=== PATIENT | female | born 1970 | race African-American/Black ===

== ENCOUNTER 2017-04-30 10:14 | Emergency (ER) | payer OTHER ==
[2017-04-30 10:40] VITALS: BP 162/103; PULSE 72; TEMP 98; BMI 48.4
--- NOTE | 2017-04-30 11:33 | PDOC ---
History of Present Illness - General Chief Complaint: Blood Pressure Problem Stated Complaint: EVALUATION Time Seen by Provider: 04/30/17 11:21 History Source: Patient Exam Limitations: No Limitations - History of Present Illness Initial Comments: 04/30/17 12:49 Patient is a [47 y/o female here requesting renewal of her hypertensive and diabetic medication. Patient reports that she's been without insurance for 2 months recently seems her card but was unable to find the physician. She denies any chest pain or shortness of breath, has noticed that her blood pressure has been elevated without any symptoms. Past Medical History: Hypertension, [id number] diabetes Allergies: No known allergies Medications: [See medication list] Family History: Non-contributory Social History: Denies smoking, alcohol use, or IVDU Review of Systems GENERAL/CONSTITUTIONAL: [No fever or chills. No weakness. No weight change.] HEAD, EYES, EARS, NOSE AND THROAT: [No change in vision. No ear pain or discharge. No sore throat. ] CARDIOVASCULAR: [No chest pain or shortness of breath.] RESPIRATORY: [No cough, wheezing, or hemoptysis.] GASTROINTESTINAL: [No nausea, vomiting, diarrhea or constipation. No rectal bleeding.] GENITOURINARY: [No dysuria, frequency, or change in urination.] MUSCULOSKELETAL: [No joint or muscle swelling or pain. No neck or back pain.] SKIN AND BREASTS: [No rash or easy bruising.] NEUROLOGIC: [No headache, vertigo, loss of consciousness, or loss of sensation.] PSYCHIATRIC: [No depression or anxiety.] ENDOCRINE: [No increased thirst. No abnormal weight change.] HEMATOLOGIC/LYMPHATIC: [No anemia, easy bleeding, or history of blood clots.] ALLERGIC/IMMUNOLOGIC: [No hives or skin allergy. No latex allergy.] Physical Exam: GENERAL: [The patient is awake, alert, and fully oriented, in no acute distress. ] HEAD: [Normal with no signs of trauma.] EYES: [Pupils equal, round and reactive to light, extraocular movements intact, sclera anicteric, conjunctiva clear.] ENT: [Ears normal, nares patent, oropharynx clear without exudates. Moist mucous membranes. No uvula deviation] NECK: [Normal range of motion, supple without lymphadenopathy, JVD, or masses.] LUNGS: [Breath sounds equal, clear to auscultation bilaterally. No wheezes, and no crackles.] HEART: [Regular rate and rhythm, normal S1 and S2 without murmur, rub or gallop. ] ABDOMEN: [Soft, nontender, normoactive bowel sounds. No guarding, no rebound. No masses. No bruising or abrasions] RECTAL : [Guaiac negative, normal rectal tone.] MUSCULOSKELETAL: [Normal range of motion, no edema. No clubbing or cyanosis. No cords, erythema, or tenderness. No CVA Tenderness with fist.] NEUROLOGICAL: [Cranial nerves II through XII grossly intact. Normal speech, normal gait.] PSYCH: [Normal mood, normal affect.] SKIN: [Warm, Dry, normal turgor, no rashes or lesions noted.] Past History - Past Medical History Allergies/Adverse Reactions: Allergies Allergy/AdvReac Type Severity Reaction Status Date / Time No Known Allergies Allergy Verified 04/30/17 10:37 Home Medications: Ambulatory Orders Amlodipine Besylate 10 mg PO DAILY 04/30/17 Losartan Potassium 50 mg PO DAILY 04/30/17 Metformin HCl 500 mg PO BID 04/30/17 COPD: No Diabetes: Yes HTN: Yes (not on meds) - Surgical History Abdominal Surgery: Yes (gastric sleve) - Immunization History Immunization Up to Date: Yes - Suicide/Smoking/Psychosocial Hx Smoking History: Never smoked *Physical Exam - Vital Signs Last Vital Signs Temp Pulse Resp BP Pulse Ox 98.0 F 72 18 162/103 100 04/30/17 10:25 04/30/17 10:25 04/30/17 10:25 04/30/17 10:25 04/30/17 10:25 Medical Decision Making - Medical Decision Making 04/30/17 12:53 A/P:: Patient here for medication renewal for hypertension but has been asymptomatic I have called her primary care doctor have located the address and have instructed patient to register and will be seen by a physician today as per the doctor's office. Discharged with strict instructions to follow up today. If any chest pain, SOB or other concerns return to the ER *DC/Admit/Observation/Transfer Diagnosis at time of Disposition: Prescription refill - Discharge Dispostion Disposition: HOME Condition at time of disposition: Stable Admit: No - Referrals Referrals: ON STAFF,NOT [Primary Care Provider] - - Patient Instructions Additional Instructions: Please follow up immediately upon discharge today at [address] [place], second floor to clinic register and you will see a physician. If any chest pain, shortness of breath, other concerns return to ER - Post Discharge Activity Forms/Work/School Notes: Back to Work
== END 2017-04-30 11:51 | disposition home or self-care (01) ==
LOC: JERFT 10:14
DX: Z76.0 Encounter for issue of repeat prescription (principal); I10 Essential (primary) hypertension; E11.9 Type 2 diabetes mellitus without complications; Z79.84 Long term (current) use of oral hypoglycemic drugs
CPT/HCPCS: 99281-25

== ENCOUNTER 2022-05-29 09:10 | Emergency (ER) | payer OTHER ==
[2022-05-29 09:24] VITALS: RESP 18; TEMP 97.9; BMI 49.4
[2022-05-29] MEDS ORDERED: SODIUM CHLORIDE 0.9% 500 ML INFUS.BAG IV ONE (10:14)
[2022-05-29 10:22] LABS: BASO % 0.7 % (0-2.0); EOS % 0.1 % (0-4.5); HEMATOCRIT 36.6 % (32.4-45.2); HEMOGLOBIN 12.1 GM/dL (10.7-15.3); LYMPH % 22.1 % (8-40); MCH 27.7 pg (25.7-33.7); MCHC 33.2 g/dl (32.0-36.0); MEAN CELL VOLUME 83.6 fl (80-96); MEAN PLT VOLUME 8.3 fl (7.5-11.1); MONO % 7.6 % (3.8-10.2); NEUT % 69.5 % (42.8-82.8); PLATELET COUNT 381 10^3/uL (134-434); RBC 4.38 M/mm3 (3.60-5.2); RDW 14.9 % (11.6-15.6)
[2022-05-29] MEDS ORDERED: METOCLOPRAMIDE HCL INJECTION 10 MG/2 ML VIAL IVPB ONE (10:25)
[2022-05-29] MEDS ORDERED: MECLIZINE HCL 25 MG TABLET (FP) PO ONE (10:25)
[2022-05-29] MEDS ORDERED: MECLIZINE HCL 25 MG TABLET (FP) ONE (10:33)
[2022-05-29] MEDS ORDERED: METOCLOPRAMIDE HCL INJECTION 10 MG/2 ML VIAL ONE (10:33)
[2022-05-29 10:47] LABS: ALBUMIN 3.6 g/dl (3.4-5.0); BLOOD UREA NITROGEN 16.3 mg/dL (7-18); CALCIUM 9.8 mg/dL (8.5-10.1); MAGNESIUM 1.8 mg/dL (1.8-2.4)
[2022-05-29 10:49] LABS: BILIRUBIN,TOTAL 0.6 mg/dL (0.2-1); CREATININE 1.2 mg/dL (0.55-1.3); PHOSPHOROUS 3.6 mg/dL (2.5-4.9); TOT PROT 7.5 g/dl (6.4-8.2)
[2022-05-29] MEDS ORDERED: POTASSIUM CHLORIDE ORAL LIQUID 20 MEQ/15 ML PO ONE (11:07)
[2022-05-29] MEDS ORDERED: POTASSIUM CHLORIDE ORAL LIQUID 20 MEQ/15 ML ONE (11:11)
[2022-05-29 13:43] VITALS: BP 138/95; PULSE 89
== END 2022-05-29 13:44 | disposition home or self-care (01) ==
LOC: JER 09:10
PROC: 3E033GC Introduction of Other Therapeutic Substance into Peripheral Vein, Percutaneous Approach (ICD-10-PCS; principal; 2022-05-29)
DX: I95.0 Idiopathic hypotension (principal); E86.0 Dehydration
CPT/HCPCS: 36415; 70450-TC; 80053; 83690; 83735; 84100; 84484; 85025; 93005; 93010; 99285-25

== ENCOUNTER 2022-07-08 10:34 | Inpatient (IN) | payer OTHER ==
[2022-07-08 10:41] VITALS: BMI 42.8
[2022-07-08] MEDS ORDERED: SODIUM CHLORIDE 3,293 ML IV ONE (11:15)
[2022-07-08] MEDS ORDERED: VANCOMYCIN 1 GM in D5W (PRE-DOCKED) 1,000 MG/250 ML (RESTRICTED TO ID ONLY IVPB ONE (11:16)
[2022-07-08] MEDS ORDERED: PIPERACILLIN/TAZOB 4.5 GM 4.5 GM in DEXTROSE 5%-WATER 100 ML IVPB ONE (11:17)
[2022-07-08 11:28] LABS: VENOUS BASE EXCESS -4.7 mmol/L (-2-2); VENOUS PCO2 33.3 mmHg (38-52); VENOUS PH 7.386 (7.310-7.410)
[2022-07-08 11:34] LABS: BASO % 0.7 % (0-2.0); EOS % 0.1 % (0-4.5); HEMATOCRIT 29.6 % (32.4-45.2); HEMOGLOBIN 10.4 GM/dL (10.7-15.3); LYMPH % 13.3 % (8-40); MCH 28.9 pg (25.7-33.7); MEAN CELL VOLUME 82.7 fl (80-96); MEAN PLT VOLUME 9.6 fl (7.5-11.1); MONO % 12.3 % (3.8-10.2); NEUT % 73.6 % (42.8-82.8); PLATELET COUNT 367 10^3/uL (134-434); RBC 3.58 M/mm3 (3.60-5.2); RDW 15.5 % (11.6-15.6); WHITE BLOOD COUNT 8.1 K/mm3 (4.0-10.0)
[2022-07-08 11:42] LABS: INR 1.14 (0.83-1.09); PROTHROMBIN TIME (PATIENT) 13.2 SEC (9.7-13.0)
[2022-07-08 11:44] LABS: ACTIVATED PTT 30.2 SECONDS (25.2-36.5)
[2022-07-08 11:55] LABS: CHLORIDE 89 mmol/L (98-107); POTASSIUM 3.4 mmol/L (3.5-5.1); SODIUM 128 mmol/L (136-145)
[2022-07-08 11:56] LABS: MAGNESIUM 2.6 mg/dL (1.8-2.4)
[2022-07-08 11:57] LABS: ALBUMIN 3.5 g/dl (3.4-5.0); CALCIUM 8.5 mg/dL (8.5-10.1)
[2022-07-08 11:58] LABS: ANION GAP 19 MMOL/L (8-16); CO2 20 mmol/L (21-32); GLUCOSE,RANDOM 104 mg/dL (74-106)
[2022-07-08 12:00] LABS: PHOSPHOROUS 5.2 mg/dL (2.5-4.9)
[2022-07-08 12:01] LABS: CREATININE 5.6 mg/dL (0.55-1.3); SGOT/AST 47 U/L (15-37); SGPT/ALT 25 U/L (13-61)
[2022-07-08 12:02] LABS: BILIRUBIN,TOTAL 0.8 mg/dL (0.2-1); TOT PROT 7.1 g/dl (6.4-8.2)
[2022-07-08 12:04] LABS: ALK PHOS 49 U/L (45-117)
[2022-07-08] MEDS ORDERED: PIPERACILLIN/TAZOB 4.5 GM 4.5 GM/100 ML BAG IVPB ONE (12:05)
[2022-07-08] MEDS ORDERED: VANCOMYCIN/WATER FOR INJ (PEG) 1,000 MG/200 ML BAG IVPB ONE (12:05)
[2022-07-08 12:16] LABS: LACTIC ACID 6.8 mmol/L (0.4-2.0)
[2022-07-08 15:14] LABS: PH,URINE 5.5 (5.0-8.0); URINE APPEARANCE CLEAR; URINE BILIRUBIN NEGATIVE (NEGATIVE); URINE COLOR YELLOW; URINE GLUCOSE (UA) NEGATIVE (NEGATIVE); URINE KETONE NEGATIVE (NEGATIVE); URINE LEUK ESTERASE NEGATIVE (NEGATIVE); URINE NITRITE NEGATIVE (NEGATIVE); URINE PROTEIN 1+ (NEGATIVE); URINE UROBILINOGEN 0.2 mg/dL (0.2-1.0)
[2022-07-08] MEDS ORDERED: SODIUM CHLORIDE 0.9% 500 ML INFUS.BAG IV ONE (15:23)
[2022-07-08] MEDS ORDERED: ACETAMINOPHEN 325 MG TABLET (FP) PO PRN (15:32)
[2022-07-08 15:39] LABS: URINE RBC 22.2 /uL (0-23.9)
[2022-07-08 15:40] LABS: EPI CELLS 45.2 /uL (0-25.1); URINE BACTERIA 72.5 /uL (0-1359); URINE WBC 86.6 /uL (0-25.8)
[2022-07-08] MEDS ORDERED: CEFTRIAXONE 1 GM in DEXTROSE 5%-WATER - 50 ML IVPB ONE ×2 (15:46→15:55)
[2022-07-08] MEDS: INSULIN SLIDING SCALE (NOVOLOG) 1 VIAL SQ SCH ×2 (16:43→22:08)
[2022-07-08 16:45] LABS: POTASSIUM 3.2 mmol/L (3.5-5.1)
[2022-07-08 16:46] LABS: BLOOD UREA NITROGEN 65.2 mg/dL (7-18)
[2022-07-08 16:50] LABS: CREATININE 4.4 mg/dL (0.55-1.3)
[2022-07-08 16:59] LABS: CALCIUM 7.1 mg/dL (8.5-10.1)
[2022-07-08] MEDS ORDERED: SODIUM CHLORIDE 1,000 ML IV SCH (17:00)
[2022-07-08] MEDS ORDERED: SODIUM CHLORIDE 0.45% 1,000 ML IV SCH (17:00)
[2022-07-08] MEDS: KCL 10 MEQ IVPB 10 MEQ/100 ML INFUS.BAG IVPB SCH ×4 (17:32→23:55)
[2022-07-08 21:15] LABS: POTASSIUM 3.1 mmol/L (3.5-5.1)
[2022-07-08 21:16] LABS: CALCIUM 7.4 mg/dL (8.5-10.1)
[2022-07-08 21:17] LABS: BLOOD UREA NITROGEN 58.2 mg/dL (7-18)
[2022-07-08] MEDS ORDERED: POTASSIUM CHLORIDE ORAL LIQUID 20 MEQ/15 ML PO ONE (21:18)
[2022-07-08 21:20] LABS: CREATININE 3.8 mg/dL (0.55-1.3)
[2022-07-08] MEDS ORDERED: LACTATED RINGERS SOLUTION 1000 ML INFUS.BAG IV ONE (21:28)
[2022-07-08] MEDS ORDERED: CHLORHEXIDINE GLUCONATE 4% CLEANSER FOR DECOLONIZATION TP SCH (22:00)
[2022-07-08] MEDS: HEPARIN NA (PORCINE) 5,000 UNITS/ML 1ML VIAL SQ SCH (22:10)
[2022-07-08] MEDS: MUPIROCIN 2% TOPICAL OINTMENT FOR DECOLONIZATION NS SCH (22:10)
[2022-07-09] MEDS: INSULIN SLIDING SCALE (NOVOLOG) 1 VIAL SQ SCH ×4 (06:30→22:09)
[2022-07-09] MEDS: HEPARIN NA (PORCINE) 5,000 UNITS/ML 1ML VIAL SQ SCH ×3 (06:30→22:10)
[2022-07-09 07:51] LABS: POTASSIUM 3.7 mmol/L (3.5-5.1)
[2022-07-09 07:53] LABS: CALCIUM 7.6 mg/dL (8.5-10.1)
[2022-07-09 07:54] LABS: ALBUMIN 2.9 g/dl (3.4-5.0); MAGNESIUM 2.3 mg/dL (1.8-2.4)
[2022-07-09 07:56] LABS: CREATININE 2.8 mg/dL (0.55-1.3)
[2022-07-09 07:57] LABS: PHOSPHOROUS 2.5 mg/dL (2.5-4.9)
[2022-07-09 07:58] LABS: TOT PROT 6.1 g/dl (6.4-8.2)
[2022-07-09 08:02] LABS: BILIRUBIN,TOTAL 0.6 mg/dL (0.2-1)
[2022-07-09] MEDS ORDERED: LACTATED RINGERS SOLUTION 1,000 ML/1,000 ML INFUS.BAG IV STA (09:54)
[2022-07-09] MEDS ORDERED: PANTOPRAZOLE 40 MG TABLET PO SCH (10:00)
[2022-07-09] MEDS: MUPIROCIN 2% TOPICAL OINTMENT FOR DECOLONIZATION NS SCH (10:23)
[2022-07-09] MEDS ORDERED: SODIUM CHLORIDE 1,000 ML IV SCH (10:30)
[2022-07-09] MEDS ORDERED: CEFTRIAXONE 1 GM in DEXTROSE 5%-WATER - 50 ML IVPB SCH ×2 (12:00→12:03)
[2022-07-09] MEDS ORDERED: MUPIROCIN 2% TOPICAL OINTMENT FOR DECOLONIZATION NS SCH (22:00)
[2022-07-09] MEDS ORDERED: CHLORHEXIDINE GLUCONATE 4% CLEANSER FOR DECOLONIZATION TP SCH (22:00)
[2022-07-10] MEDS: HEPARIN NA (PORCINE) 5,000 UNITS/ML 1ML VIAL SQ SCH ×3 (06:10→22:03)
[2022-07-10] MEDS: SODIUM CHLORIDE 1,000 ML IV SCH ×2 (06:14→19:27)
[2022-07-10] MEDS: INSULIN SLIDING SCALE (NOVOLOG) 1 VIAL SQ SCH ×2 (06:48→11:14)
[2022-07-10] MEDS: ACETAMINOPHEN 325 MG TABLET (FP) PO PRN (07:53)
[2022-07-10] MEDS: PANTOPRAZOLE 40 MG TABLET PO SCH (10:28)
[2022-07-10 11:19] LABS: CHLORIDE 107 mmol/L (98-107); POTASSIUM 3.8 mmol/L (3.5-5.1); SODIUM 139 mmol/L (136-145)
[2022-07-10 11:21] LABS: ALBUMIN 2.9 g/dl (3.4-5.0); ANION GAP 11 MMOL/L (8-16); BLOOD UREA NITROGEN 31.5 mg/dL (7-18); CO2 20 mmol/L (21-32); GLUCOSE,RANDOM 86 mg/dL (74-106)
[2022-07-10 11:24] LABS: CREATININE 1.6 mg/dL (0.55-1.3); SGOT/AST 54 U/L (15-37)
[2022-07-10 11:25] LABS: SGPT/ALT 31 U/L (13-61)
[2022-07-10 11:26] LABS: BILIRUBIN,TOTAL 0.6 mg/dL (0.2-1); TOT PROT 6.4 g/dl (6.4-8.2)
[2022-07-10 11:27] LABS: ALK PHOS 45 U/L (45-117)
[2022-07-10 11:39] LABS: CALCIUM 8.9 mg/dL (8.5-10.1)
[2022-07-10] MEDS: FOLIC ACID 1 MG TABLET (FP) PO SCH (14:56)
[2022-07-10 15:20] LABS: IRON SERUM 114 ug/dL (50-175)
[2022-07-10 15:21] LABS: TOTAL IRON BINDING CAPACITY 197 ug/dL (250-450)
[2022-07-10 21:06] LABS: ANTIGLOMERULAR BASEMENT MEN.AB <0.2 units (0.0-0.9)
[2022-07-11] MEDS: HEPARIN NA (PORCINE) 5,000 UNITS/ML 1ML VIAL SQ SCH ×3 (05:09→21:16)
[2022-07-11] MEDS: ACETAMINOPHEN 325 MG TABLET (FP) PO PRN ×2 (06:33→21:14)
[2022-07-11] MEDS ORDERED: amLODIPine BESYLATE 10 MG TABLET (FP) PO SCH (10:00)
[2022-07-11 10:34] LABS: HEMATOCRIT 28.1 % (32.4-45.2); HEMOGLOBIN 9.6 GM/dL (10.7-15.3); MCH 28.2 pg (25.7-33.7); MCHC 34.2 g/dl (32.0-36.0); MEAN CELL VOLUME 82.6 fl (80-96); MEAN PLT VOLUME 8.5 fl (7.5-11.1); PLATELET COUNT 378 10^3/uL (134-434); RDW 16.3 % (11.6-15.6); RETICULOCYTES 0.37 % (0.5-1.5); WHITE BLOOD COUNT 6.2 K/mm3 (4.0-10.0)
[2022-07-11] MEDS: FOLIC ACID 1 MG TABLET (FP) PO SCH (10:54)
[2022-07-11] MEDS: PANTOPRAZOLE 40 MG TABLET PO SCH (10:54)
[2022-07-11 10:59] LABS: POTASSIUM 3.6 mmol/L (3.5-5.1)
[2022-07-11] MEDS: NYSTATIN POWDER 100,000 UNITS/GM - 15 GM TOPICAL POWDER TP SCH (11:00)
[2022-07-11 11:10] LABS: ALBUMIN 2.8 g/dl (3.4-5.0); BLOOD UREA NITROGEN 24.2 mg/dL (7-18); CALCIUM 9.7 mg/dL (8.5-10.1); MAGNESIUM 1.9 mg/dL (1.8-2.4)
[2022-07-11 11:12] LABS: CREATININE 1.4 mg/dL (0.55-1.3); PHOSPHOROUS 3.4 mg/dL (2.5-4.9)
[2022-07-11 11:13] LABS: BILIRUBIN,TOTAL 0.5 mg/dL (0.2-1); TOT PROT 6.2 g/dl (6.4-8.2)
[2022-07-11 16:08] LABS: ATYPICAL pANCA <1:20 titer (Neg:<1:20); C-ANCA <1:20 titer (Neg:<1:20)
[2022-07-12] MEDS ORDERED: ACETAMINOPHEN 1000 MG/100 ML BAG IVPB ONE (04:16)
[2022-07-12] MEDS: HEPARIN NA (PORCINE) 5,000 UNITS/ML 1ML VIAL SQ SCH ×3 (05:06→21:40)
[2022-07-12 09:24] LABS: HEMATOCRIT 26.6 % (32.4-45.2); HEMOGLOBIN 9.2 GM/dL (10.7-15.3); MCH 28.8 pg (25.7-33.7); MCHC 34.5 g/dl (32.0-36.0); MEAN CELL VOLUME 83.6 fl (80-96); MEAN PLT VOLUME 8.2 fl (7.5-11.1); PLATELET COUNT 344 10^3/uL (134-434); RBC 3.18 M/mm3 (3.60-5.2); RDW 16.4 % (11.6-15.6); WHITE BLOOD COUNT 6.3 K/mm3 (4.0-10.0)
[2022-07-12 09:44] LABS: POTASSIUM 3.7 mmol/L (3.5-5.1)
[2022-07-12 09:51] LABS: ALBUMIN 2.9 g/dl (3.4-5.0)
[2022-07-12 09:55] LABS: BLOOD UREA NITROGEN 22.2 mg/dL (7-18); CREATININE 1.5 mg/dL (0.55-1.3)
[2022-07-12 09:57] LABS: PHOSPHOROUS 4.4 mg/dL (2.5-4.9)
[2022-07-12 09:58] LABS: CALCIUM 9.4 mg/dL (8.5-10.1); MAGNESIUM 1.6 mg/dL (1.8-2.4)
[2022-07-12 09:59] LABS: TOT PROT 6.2 g/dl (6.4-8.2)
[2022-07-12 10:00] LABS: BILIRUBIN,TOTAL 0.5 mg/dL (0.2-1)
[2022-07-12] MEDS: FOLIC ACID 1 MG TABLET (FP) PO SCH (11:15)
[2022-07-12] MEDS: NYSTATIN POWDER 100,000 UNITS/GM - 15 GM TOPICAL POWDER TP SCH (11:15)
[2022-07-12] MEDS: PANTOPRAZOLE 40 MG TABLET PO SCH (11:15)
[2022-07-12] MEDS ORDERED: MAGNESIUM OXIDE 400 MG TABLET (FP) PO ONE (14:10)
[2022-07-12] MEDS: ACETAMINOPHEN 325 MG TABLET (FP) PO PRN (14:52)
[2022-07-12] MEDS: oxyCODONE HCL 5 MG TABLET PO PRN (23:11)
[2022-07-13] MEDS: HEPARIN NA (PORCINE) 5,000 UNITS/ML 1ML VIAL SQ SCH ×3 (06:56→21:43)
[2022-07-13] MEDS: oxyCODONE HCL 5 MG TABLET PO PRN ×3 (07:13→22:57)
[2022-07-13] MEDS: NYSTATIN POWDER 100,000 UNITS/GM - 15 GM TOPICAL POWDER TP SCH (09:49)
[2022-07-13] MEDS: PANTOPRAZOLE 40 MG TABLET PO SCH (09:49)
[2022-07-13] MEDS: FOLIC ACID 1 MG TABLET (FP) PO SCH (09:49)
[2022-07-13] MEDS ORDERED: ALPRAZolam 0.25 MG TABLET PO ONE (18:15)
[2022-07-14] MEDS: HEPARIN NA (PORCINE) 5,000 UNITS/ML 1ML VIAL SQ SCH ×3 (05:31→22:56)
[2022-07-14] MEDS: oxyCODONE HCL 5 MG TABLET PO PRN ×2 (07:54→22:56)
[2022-07-14] MEDS ORDERED: GABAPENTIN 300 MG CAPSULE PO PRN (07:59)
[2022-07-14 08:59] LABS: HEMATOCRIT 25.9 % (32.4-45.2); HEMOGLOBIN 9.1 GM/dL (10.7-15.3); MCHC 34.9 g/dl (32.0-36.0); PLATELET COUNT 342 10^3/uL (134-434); RBC 3.13 M/mm3 (3.60-5.2); RDW 15.7 % (11.6-15.6); WHITE BLOOD COUNT 6.5 K/mm3 (4.0-10.0)
[2022-07-14 09:21] LABS: POTASSIUM 3.6 mmol/L (3.5-5.1)
[2022-07-14 09:23] LABS: CALCIUM 10.3 mg/dL (8.5-10.1)
[2022-07-14 09:24] LABS: BLOOD UREA NITROGEN 19.6 mg/dL (7-18); MAGNESIUM 1.6 mg/dL (1.8-2.4)
[2022-07-14 09:27] LABS: CREATININE 1.5 mg/dL (0.55-1.3); PHOSPHOROUS 4.1 mg/dL (2.5-4.9)
[2022-07-14 09:28] LABS: TOT PROT 6.5 g/dl (6.4-8.2)
[2022-07-14 09:29] LABS: BILIRUBIN,TOTAL 0.4 mg/dL (0.2-1)
[2022-07-14] MEDS: FOLIC ACID 1 MG TABLET (FP) PO SCH (09:55)
[2022-07-14] MEDS: PANTOPRAZOLE 40 MG TABLET PO SCH (09:55)
[2022-07-14] MEDS: NYSTATIN POWDER 100,000 UNITS/GM - 15 GM TOPICAL POWDER TP SCH (09:56)
[2022-07-14] MEDS ORDERED: MAGNESIUM 2GM/50ML STERILE WATER IVPB IVPB ONE (11:25)
[2022-07-14] MEDS: GABAPENTIN 300 MG CAPSULE PO SCH ×2 (14:04→22:57)
[2022-07-15] MEDS: HEPARIN NA (PORCINE) 5,000 UNITS/ML 1ML VIAL SQ SCH ×3 (06:59→22:59)
[2022-07-15] MEDS: GABAPENTIN 300 MG CAPSULE PO SCH ×3 (06:59→22:59)
[2022-07-15 09:12] LABS: HEMATOCRIT 26.5 % (32.4-45.2); HEMOGLOBIN 9.2 GM/dL (10.7-15.3); MCH 28.7 pg (25.7-33.7); MCHC 34.9 g/dl (32.0-36.0); MEAN CELL VOLUME 82.3 fl (80-96); MEAN PLT VOLUME 7.9 fl (7.5-11.1); PLATELET COUNT 339 10^3/uL (134-434); RBC 3.22 M/mm3 (3.60-5.2); RDW 16.2 % (11.6-15.6); WHITE BLOOD COUNT 6.3 K/mm3 (4.0-10.0)
[2022-07-15 09:26] LABS: POTASSIUM 3.7 mmol/L (3.5-5.1)
[2022-07-15 09:31] LABS: CALCIUM 10.1 mg/dL (8.5-10.1)
[2022-07-15 09:32] LABS: ALBUMIN 2.9 g/dl (3.4-5.0); BLOOD UREA NITROGEN 23.8 mg/dL (7-18); MAGNESIUM 1.9 mg/dL (1.8-2.4)
[2022-07-15 09:35] LABS: CREATININE 1.9 mg/dL (0.55-1.3); PHOSPHOROUS 4.5 mg/dL (2.5-4.9)
[2022-07-15 09:36] LABS: BILIRUBIN,TOTAL 0.4 mg/dL (0.2-1); TOT PROT 6.4 g/dl (6.4-8.2)
[2022-07-15] MEDS: ASCORBIC ACID 250 MG TABLET (FP) PO SCH (09:47)
[2022-07-15] MEDS: PANTOPRAZOLE 40 MG TABLET PO SCH (09:48)
[2022-07-15] MEDS: FOLIC ACID 1 MG TABLET (FP) PO SCH (09:48)
[2022-07-15] MEDS: MULTIVITAMINS (DAILY MVI) TABLET (FP) PO SCH (09:48)
[2022-07-15] MEDS: NYSTATIN POWDER 100,000 UNITS/GM - 15 GM TOPICAL POWDER TP SCH (09:50)
[2022-07-15] MEDS ORDERED: SODIUM CHLORIDE 1,000 ML IV SCH (11:30)
[2022-07-15] MEDS: oxyCODONE HCL 5 MG TABLET PO PRN (22:59)
[2022-07-16] MEDS: HEPARIN NA (PORCINE) 5,000 UNITS/ML 1ML VIAL SQ SCH (06:20)
[2022-07-16] MEDS: GABAPENTIN 300 MG CAPSULE PO SCH ×3 (06:20→21:25)
[2022-07-16 10:10] LABS: HEMATOCRIT 26.3 % (32.4-45.2); LYMPH % 36.7 % (8-40); MCH 28.6 pg (25.7-33.7); MCHC 34.3 g/dl (32.0-36.0); MEAN CELL VOLUME 83.2 fl (80-96); MEAN PLT VOLUME 7.8 fl (7.5-11.1); MONO % 8.2 % (3.8-10.2); NEUT % 52.1 % (42.8-82.8); PLATELET COUNT 372 10^3/uL (134-434); RBC 3.16 M/mm3 (3.60-5.2); RDW 16.3 % (11.6-15.6); WHITE BLOOD COUNT 8.6 K/mm3 (4.0-10.0)
[2022-07-16 10:35] LABS: POTASSIUM 3.6 mmol/L (3.5-5.1)
[2022-07-16 10:39] LABS: CALCIUM 10.3 mg/dL (8.5-10.1)
[2022-07-16 10:40] LABS: TOTAL IRON BINDING CAPACITY 231 ug/dL (250-450)
[2022-07-16 10:41] LABS: IRON SERUM 95 ug/dL (50-175)
[2022-07-16] MEDS: FOLIC ACID 1 MG TABLET (FP) PO SCH (10:42)
[2022-07-16] MEDS: PANTOPRAZOLE 40 MG TABLET PO SCH (10:42)
[2022-07-16] MEDS: ASCORBIC ACID 250 MG TABLET (FP) PO SCH (10:42)
[2022-07-16] MEDS: MULTIVITAMINS (DAILY MVI) TABLET (FP) PO SCH (10:42)
[2022-07-16 10:43] LABS: CREATININE 2.8 mg/dL (0.55-1.3)
[2022-07-16 10:44] LABS: BILIRUBIN,TOTAL 0.3 mg/dL (0.2-1); TOT PROT 6.5 g/dl (6.4-8.2)
[2022-07-16] MEDS: NYSTATIN POWDER 100,000 UNITS/GM - 15 GM TOPICAL POWDER TP SCH (10:44)
[2022-07-16] MEDS: SENNOSIDES 8.6MG TABLET (FP) PO SCH ×2 (14:18→21:25)
[2022-07-16] MEDS: POLYETHYLENE GLYCOL (HEALTHYLAX) 3350 17 GM PACKET PO SCH (14:19)
[2022-07-16] MEDS: THIAMINE HCL 100 MG TABLET (FP) PO SCH (21:25)
[2022-07-17 05:11] LABS: SCLERODERMA 70 AB <20 Units (<20)
[2022-07-17] MEDS: GABAPENTIN 300 MG CAPSULE PO SCH ×3 (05:30→21:34)
[2022-07-17] MEDS: MULTIVITAMINS (DAILY MVI) TABLET (FP) PO SCH (09:31)
[2022-07-17] MEDS: FOLIC ACID 1 MG TABLET (FP) PO SCH (09:31)
[2022-07-17] MEDS: PANTOPRAZOLE 40 MG TABLET PO SCH (09:31)
[2022-07-17] MEDS: THIAMINE HCL 100 MG TABLET (FP) PO SCH ×2 (09:31→21:34)
[2022-07-17] MEDS: ASCORBIC ACID 250 MG TABLET (FP) PO SCH (09:31)
[2022-07-17] MEDS: NYSTATIN POWDER 100,000 UNITS/GM - 15 GM TOPICAL POWDER TP SCH (09:33)
[2022-07-17] MEDS: POLYETHYLENE GLYCOL (HEALTHYLAX) 3350 17 GM PACKET PO SCH (10:00)
[2022-07-17] MEDS: SENNOSIDES 8.6MG TABLET (FP) PO SCH ×2 (10:00→21:33)
[2022-07-17 11:34] LABS: HEMATOCRIT 23.8 % (32.4-45.2); HEMOGLOBIN 8.2 GM/dL (10.7-15.3); MCH 28.7 pg (25.7-33.7); MCHC 34.6 g/dl (32.0-36.0); PLATELET COUNT 303 10^3/uL (134-434); RBC 2.87 M/mm3 (3.60-5.2); RDW 16.3 % (11.6-15.6); WHITE BLOOD COUNT 7.2 K/mm3 (4.0-10.0)
[2022-07-17 11:49] LABS: POTASSIUM 3.7 mmol/L (3.5-5.1)
[2022-07-17 11:55] LABS: BLOOD UREA NITROGEN 29.3 mg/dL (7-18)
[2022-07-17 11:56] LABS: ALBUMIN 2.7 g/dl (3.4-5.0); BILIRUBIN,TOTAL 0.3 mg/dL (0.2-1); PHOSPHOROUS 4.8 mg/dL (2.5-4.9)
[2022-07-17 11:57] LABS: CALCIUM 9.7 mg/dL (8.5-10.1); MAGNESIUM 1.6 mg/dL (1.8-2.4)
[2022-07-17] MEDS ORDERED: MAGNESIUM SULF 50% (8.12 MEQ/2 ML-1 GM VIAL) IVPB ONE (13:55)
[2022-07-17 15:19] LABS: CSF APPEARANCE CLEAR (CLEAR); CSF COLOR COLORLESS (COLORLESS); CSF WBC 2 mm3 (0-5)
[2022-07-17] MEDS: oxyCODONE HCL 5 MG TABLET PO PRN ×2 (17:07→22:43)
[2022-07-17 18:33] LABS: BF GLUCOSE (CSF ONLY) 67 mg/dL (40-70)
[2022-07-18] MEDS: GABAPENTIN 300 MG CAPSULE PO SCH ×3 (05:41→22:43)
[2022-07-18] MEDS ORDERED: hydrALAZINE HCL 10 MG TABLET PO SCH (10:00)
[2022-07-18 10:27] LABS: HEMATOCRIT 24.3 % (32.4-45.2); HEMOGLOBIN 8.5 GM/dL (10.7-15.3); MCH 29.2 pg (25.7-33.7); MCHC 35.2 g/dl (32.0-36.0); MEAN CELL VOLUME 82.9 fl (80-96); MEAN PLT VOLUME 8.2 fl (7.5-11.1); PLATELET COUNT 312 10^3/uL (134-434); RBC 2.93 M/mm3 (3.60-5.2); RDW 15.9 % (11.6-15.6); WHITE BLOOD COUNT 8.9 K/mm3 (4.0-10.0)
[2022-07-18] MEDS: MULTIVITAMINS (DAILY MVI) TABLET (FP) PO SCH (10:46)
[2022-07-18] MEDS: FOLIC ACID 1 MG TABLET (FP) PO SCH (10:46)
[2022-07-18] MEDS: PANTOPRAZOLE 40 MG TABLET PO SCH (10:46)
[2022-07-18] MEDS: THIAMINE HCL 100 MG TABLET (FP) PO SCH ×2 (10:46→22:43)
[2022-07-18] MEDS: ASCORBIC ACID 250 MG TABLET (FP) PO SCH (10:46)
[2022-07-18] MEDS: SENNOSIDES 8.6MG TABLET (FP) PO SCH ×2 (10:46→22:43)
[2022-07-18] MEDS: POLYETHYLENE GLYCOL (HEALTHYLAX) 3350 17 GM PACKET PO SCH (10:46)
[2022-07-18] MEDS: NYSTATIN POWDER 100,000 UNITS/GM - 15 GM TOPICAL POWDER TP SCH (10:47)
[2022-07-18 10:52] LABS: POTASSIUM 3.6 mmol/L (3.5-5.1)
[2022-07-18 10:57] LABS: MAGNESIUM 1.9 mg/dL (1.8-2.4)
[2022-07-18 10:59] LABS: BLOOD UREA NITROGEN 23.7 mg/dL (7-18)
[2022-07-18 11:00] LABS: CREATININE 1.5 mg/dL (0.55-1.3); PHOSPHOROUS 3.8 mg/dL (2.5-4.9)
[2022-07-18] MEDS: hydrALAZINE HCL 10 MG TABLET PO SCH ×2 (14:54→22:43)
[2022-07-18] MEDS ORDERED: PYRIDOXINE HCL 100 MG/1 ML VIAL IM SCH (18:30)
[2022-07-18] MEDS ORDERED: PYRIDOXINE HCL (B-6) 100 MG TABLET PO SCH (18:30)
[2022-07-18] MEDS: PYRIDOXINE HCL 100 MG/1 ML VIAL IM SCH (20:54)
[2022-07-18] MEDS: oxyCODONE HCL 5 MG TABLET PO PRN (22:45)
[2022-07-19] MEDS: GABAPENTIN 300 MG CAPSULE PO SCH ×3 (06:29→21:20)
[2022-07-19] MEDS: hydrALAZINE HCL 10 MG TABLET PO SCH ×3 (06:29→21:20)
[2022-07-19] MEDS: oxyCODONE HCL 5 MG TABLET PO PRN ×2 (06:32→22:35)
[2022-07-19 07:07] LABS: HOMOCYSTINE-PLASMA OR SERUM 24.5 umol/L (0.0-14.5)
[2022-07-19 08:13] LABS: HEMATOCRIT 24.3 % (32.4-45.2); HEMOGLOBIN 8.4 GM/dL (10.7-15.3); MCH 28.8 pg (25.7-33.7); MCHC 34.8 g/dl (32.0-36.0); MEAN CELL VOLUME 82.7 fl (80-96); MEAN PLT VOLUME 8.2 fl (7.5-11.1); PLATELET COUNT 310 10^3/uL (134-434); RBC 2.94 M/mm3 (3.60-5.2); RDW 16.2 % (11.6-15.6); WHITE BLOOD COUNT 10.2 K/mm3 (4.0-10.0)
[2022-07-19 08:37] LABS: POTASSIUM 3.6 mmol/L (3.5-5.1)
[2022-07-19 08:40] LABS: BLOOD UREA NITROGEN 17.6 mg/dL (7-18)
[2022-07-19 08:43] LABS: MAGNESIUM 1.3 mg/dL (1.8-2.4)
[2022-07-19 08:44] LABS: CALCIUM 9.7 mg/dL (8.5-10.1); CREATININE 1.1 mg/dL (0.55-1.3); PHOSPHOROUS 3.5 mg/dL (2.5-4.9)
[2022-07-19] MEDS: THIAMINE HCL 100 MG TABLET (FP) PO SCH (09:55)
[2022-07-19] MEDS: FOLIC ACID 1 MG TABLET (FP) PO SCH (09:55)
[2022-07-19] MEDS: PYRIDOXINE HCL 100 MG/1 ML VIAL IM SCH (09:56)
[2022-07-19] MEDS: ASCORBIC ACID 250 MG TABLET (FP) PO SCH (09:56)
[2022-07-19] MEDS: PANTOPRAZOLE 40 MG TABLET PO SCH (09:56)
[2022-07-19] MEDS: MULTIVITAMINS (DAILY MVI) TABLET (FP) PO SCH (09:56)
[2022-07-19] MEDS: NYSTATIN POWDER 100,000 UNITS/GM - 15 GM TOPICAL POWDER TP SCH (09:57)
[2022-07-19] MEDS: SENNOSIDES 8.6MG TABLET (FP) PO SCH ×2 (10:01→21:20)
[2022-07-19] MEDS: POLYETHYLENE GLYCOL (HEALTHYLAX) 3350 17 GM PACKET PO SCH (10:01)
[2022-07-19] MEDS: THIAMINE HCL 200 MG/2 ML VIAL IVPB SCH ×2 (14:19→22:34)
[2022-07-19] MEDS ORDERED: MAGNESIUM SULF 50% (8.12 MEQ/2 ML-1 GM VIAL) IVPB ONE (15:15)
[2022-07-20] MEDS: hydrALAZINE HCL 10 MG TABLET PO SCH ×3 (05:01→22:18)
[2022-07-20] MEDS: GABAPENTIN 300 MG CAPSULE PO SCH ×3 (05:01→22:17)
[2022-07-20] MEDS: THIAMINE HCL 200 MG/2 ML VIAL IVPB SCH ×3 (05:02→22:19)
[2022-07-20] MEDS: SENNOSIDES 8.6MG TABLET (FP) PO SCH ×2 (09:20→22:17)
[2022-07-20] MEDS: MULTIVITAMINS (DAILY MVI) TABLET (FP) PO SCH (09:20)
[2022-07-20] MEDS: POLYETHYLENE GLYCOL (HEALTHYLAX) 3350 17 GM PACKET PO SCH ×2 (09:20→09:23)
[2022-07-20] MEDS: ASCORBIC ACID 250 MG TABLET (FP) PO SCH (09:20)
[2022-07-20] MEDS: PANTOPRAZOLE 40 MG TABLET PO SCH (09:20)
[2022-07-20 09:21] LABS: HEMATOCRIT 24.3 % (32.4-45.2); HEMOGLOBIN 8.4 GM/dL (10.7-15.3); MCHC 34.7 g/dl (32.0-36.0); MEAN CELL VOLUME 83.4 fl (80-96); MEAN PLT VOLUME 9.1 fl (7.5-11.1); PLATELET COUNT 287 10^3/uL (134-434); RBC 2.92 M/mm3 (3.60-5.2); RDW 16.1 % (11.6-15.6); WHITE BLOOD COUNT 10.9 K/mm3 (4.0-10.0)
[2022-07-20] MEDS: NYSTATIN POWDER 100,000 UNITS/GM - 15 GM TOPICAL POWDER TP SCH (09:21)
[2022-07-20 09:43] LABS: POTASSIUM 3.3 mmol/L (3.5-5.1)
[2022-07-20 09:49] LABS: ALBUMIN 2.9 g/dl (3.4-5.0); BLOOD UREA NITROGEN 11.9 mg/dL (7-18); CALCIUM 9.5 mg/dL (8.5-10.1); MAGNESIUM 1.6 mg/dL (1.8-2.4)
[2022-07-20 09:52] LABS: CREATININE 1.3 mg/dL (0.55-1.3); PHOSPHOROUS 3.4 mg/dL (2.5-4.9)
[2022-07-20 09:53] LABS: BILIRUBIN,TOTAL 0.3 mg/dL (0.2-1); TOT PROT 6.3 g/dl (6.4-8.2)
[2022-07-20] MEDS: FOLIC ACID 5 MG/1 ML SQ SCH (12:29)
[2022-07-20] MEDS: PYRIDOXINE HCL 100 MG/1 ML VIAL IM SCH (12:30)
[2022-07-20] MEDS ORDERED: POTASSIUM CHLORIDE ORAL LIQUID 20 MEQ/15 ML PO ONE (13:50)
[2022-07-20] MEDS ORDERED: MAGNESIUM SULF 50% (8.12 MEQ/2 ML-1 GM VIAL) IVPB ONE (13:50)
[2022-07-20 14:08] LABS: ALBUMIN SERUM 3.4 g/dL (3.8-4.9); CSF IGG INDEX 0.6 (0.0-0.7); IGG QN CSF 6.3 mg/dL (0.0-6.7); IGG/ALB RATIO CSF 0.19 (0.00-0.25)
[2022-07-20] MEDS ORDERED: NAPH,MB-DB/K PH,MBDB POWDER PACKET PO ONE (15:11)
[2022-07-20] MEDS ORDERED: ACETAMINOPHEN 1000 MG/100 ML BAG IVPB PRN (15:14)
[2022-07-20] MEDS: HEPARIN NA (PORCINE) 5,000 UNITS/ML 1ML VIAL SQ SCH ×2 (15:46→22:18)
[2022-07-20] MEDS: traMADol HCL 50 MG TABLET PO PRN (22:19)
[2022-07-21 01:11] LABS: METHYLMALONIC ACID- 124 nmol/L (0-378)
[2022-07-21] MEDS: hydrALAZINE HCL 10 MG TABLET PO SCH ×3 (06:34→21:57)
[2022-07-21] MEDS: HEPARIN NA (PORCINE) 5,000 UNITS/ML 1ML VIAL SQ SCH ×3 (06:34→21:57)
[2022-07-21] MEDS: THIAMINE HCL 200 MG/2 ML VIAL IVPB SCH (06:34)
[2022-07-21] MEDS: GABAPENTIN 300 MG CAPSULE PO SCH ×3 (06:34→21:57)
[2022-07-21] MEDS: FOLIC ACID 5 MG/1 ML SQ SCH (09:46)
[2022-07-21] MEDS: SENNOSIDES 8.6MG TABLET (FP) PO SCH ×2 (09:47→21:57)
[2022-07-21] MEDS: PANTOPRAZOLE 40 MG TABLET PO SCH (09:47)
[2022-07-21] MEDS: MULTIVITAMINS (DAILY MVI) TABLET (FP) PO SCH (09:47)
[2022-07-21] MEDS: traMADol HCL 50 MG TABLET PO PRN ×2 (09:47→22:57)
[2022-07-21] MEDS: ASCORBIC ACID 250 MG TABLET (FP) PO SCH (09:47)
[2022-07-21] MEDS: PYRIDOXINE HCL 100 MG/1 ML VIAL IM SCH (09:48)
[2022-07-21] MEDS: NYSTATIN POWDER 100,000 UNITS/GM - 15 GM TOPICAL POWDER TP SCH (09:49)
[2022-07-21 09:50] LABS: POTASSIUM 3.5 mmol/L (3.5-5.1)
[2022-07-21 09:53] LABS: HEMATOCRIT 22.5 % (32.4-45.2); HEMOGLOBIN 7.7 GM/dL (10.7-15.3); MCH 28.6 pg (25.7-33.7); MCHC 34.2 g/dl (32.0-36.0); MEAN CELL VOLUME 83.7 fl (80-96); MEAN PLT VOLUME 9.3 fl (7.5-11.1); PLATELET COUNT 269 10^3/uL (134-434); RBC 2.68 M/mm3 (3.60-5.2); RDW 16.6 % (11.6-15.6); WHITE BLOOD COUNT 10.1 K/mm3 (4.0-10.0)
[2022-07-21 10:07] LABS: ALBUMIN 2.7 g/dl (3.4-5.0); CALCIUM 9.2 mg/dL (8.5-10.1)
[2022-07-21 10:08] LABS: MAGNESIUM 1.5 mg/dL (1.8-2.4)
[2022-07-21 10:10] LABS: PHOSPHOROUS 3.4 mg/dL (2.5-4.9)
[2022-07-21 10:11] LABS: CREATININE 1.1 mg/dL (0.55-1.3)
[2022-07-21 10:12] LABS: BILIRUBIN,TOTAL 0.3 mg/dL (0.2-1); TOT PROT 5.9 g/dl (6.4-8.2)
[2022-07-21] MEDS ORDERED: IMMUNE GLOBULIN (IgG-GAMMAKED) 10 GM VIAL IVPB SCH (13:00)
[2022-07-21] MEDS ORDERED: IMMUN GLOB IVPB SCH (14:00)
[2022-07-21] MEDS ORDERED: IGA IVPB SCH (14:00)
[2022-07-21] MEDS ORDERED: PRO IMMUN GLOB IVPB SCH (14:00)
[2022-07-21] MEDS ORDERED: PRO IVPB SCH (14:00)
[2022-07-21] MEDS ORDERED: MAGNESIUM SULF 50% (8.12 MEQ/2 ML-1 GM VIAL) IVPB ONE (14:00)
[2022-07-21] MEDS: IGA IVPB SCH (15:56)
[2022-07-21] MEDS: PRO IVPB SCH (15:56)
[2022-07-21] MEDS: IMMUN GLOB IVPB SCH (15:56)
[2022-07-21] MEDS: PRO IMMUN GLOB IVPB SCH (15:56)
[2022-07-22] MEDS: HEPARIN NA (PORCINE) 5,000 UNITS/ML 1ML VIAL SQ SCH ×3 (05:49→21:31)
[2022-07-22] MEDS: GABAPENTIN 300 MG CAPSULE PO SCH ×3 (05:49→21:31)
[2022-07-22] MEDS: hydrALAZINE HCL 10 MG TABLET PO SCH ×3 (05:49→21:31)
[2022-07-22] MEDS: PYRIDOXINE HCL 100 MG/1 ML VIAL IM SCH (09:24)
[2022-07-22] MEDS: ASCORBIC ACID 250 MG TABLET (FP) PO SCH (09:24)
[2022-07-22] MEDS: ZINC SULFATE 220 MG CAPSULE (FP) PO SCH (09:24)
[2022-07-22] MEDS: SENNOSIDES 8.6MG TABLET (FP) PO SCH ×2 (09:24→21:30)
[2022-07-22] MEDS: MULTIVITAMINS (DAILY MVI) TABLET (FP) PO SCH (09:24)
[2022-07-22] MEDS: PANTOPRAZOLE 40 MG TABLET PO SCH (09:24)
[2022-07-22] MEDS: FOLIC ACID 5 MG/1 ML SQ SCH (09:25)
[2022-07-22] MEDS: THIAMINE HCL 200 MG/2 ML VIAL IVPB SCH (09:26)
[2022-07-22 09:40] LABS: BASO % 0.6 % (0-2.0); EOS % 3.3 % (0-4.5); HEMOGLOBIN 7.7 GM/dL (10.7-15.3); LYMPH % 14.7 % (8-40); MCH 28.3 pg (25.7-33.7); MCHC 33.5 g/dl (32.0-36.0); MEAN CELL VOLUME 84.7 fl (80-96); MEAN PLT VOLUME 8.8 fl (7.5-11.1); MONO % 6.2 % (3.8-10.2); NEUT % 75.2 % (42.8-82.8); PLATELET COUNT 266 10^3/uL (134-434); RBC 2.71 M/mm3 (3.60-5.2); RDW 16.8 % (11.6-15.6); WHITE BLOOD COUNT 8.6 K/mm3 (4.0-10.0)
[2022-07-22 09:57] LABS: POTASSIUM 3.3 mmol/L (3.5-5.1)
[2022-07-22] MEDS ORDERED: THIAMINE HCL 200 MG/2 ML VIAL IVPB SCH (10:00)
[2022-07-22 10:02] LABS: CALCIUM 9.2 mg/dL (8.5-10.1)
[2022-07-22 10:03] LABS: ALBUMIN 2.6 g/dl (3.4-5.0); BLOOD UREA NITROGEN 8.8 mg/dL (7-18); MAGNESIUM 1.6 mg/dL (1.8-2.4)
[2022-07-22 10:05] LABS: PHOSPHOROUS 3.3 mg/dL (2.5-4.9)
[2022-07-22 10:06] LABS: CREATININE 1.1 mg/dL (0.55-1.3)
[2022-07-22 10:07] LABS: BILIRUBIN,TOTAL 0.4 mg/dL (0.2-1); TOT PROT 6.7 g/dl (6.4-8.2)
[2022-07-22] MEDS ORDERED: IMMUN GLOB G(IGG)/PRO/IGA 0-50 400 ML, IMMUN GLOB G(IGG)/PRO/IGA 0-50 100 ML IVPB SCH (10:30)
[2022-07-22] MEDS: IMMUN GLOB G(IGG)/PRO/IGA 0-50 400 ML, IMMUN GLOB G(IGG)/PRO/IGA 0-50 100 ML IVPB SCH (11:35)
[2022-07-22] MEDS: NYSTATIN POWDER 100,000 UNITS/GM - 15 GM TOPICAL POWDER TP SCH (11:35)
[2022-07-22] MEDS: PRO IVPB SCH (12:22)
[2022-07-22] MEDS: PRO IMMUN GLOB IVPB SCH (12:22)
[2022-07-22] MEDS: IGA IVPB SCH (12:22)
[2022-07-22] MEDS: IMMUN GLOB IVPB SCH (12:22)
[2022-07-22] MEDS ORDERED: POTASSIUM CHLORIDE ORAL LIQUID 20 MEQ/15 ML PO ONE (14:08)
[2022-07-22] MEDS ORDERED: MAGNESIUM SULF 50% (8.12 MEQ/2 ML-1 GM VIAL) IVPB ONE (14:08)
[2022-07-22] MEDS: traMADol HCL 50 MG TABLET PO PRN (21:30)
[2022-07-23] MEDS: hydrALAZINE HCL 10 MG TABLET PO SCH ×3 (06:00→21:43)
[2022-07-23] MEDS: HEPARIN NA (PORCINE) 5,000 UNITS/ML 1ML VIAL SQ SCH ×3 (06:00→21:44)
[2022-07-23] MEDS: GABAPENTIN 300 MG CAPSULE PO SCH ×3 (06:00→21:47)
[2022-07-23] MEDS: MULTIVITAMINS (DAILY MVI) TABLET (FP) PO SCH (09:22)
[2022-07-23] MEDS: PYRIDOXINE HCL 100 MG/1 ML VIAL IM SCH (09:22)
[2022-07-23] MEDS: ZINC SULFATE 220 MG CAPSULE (FP) PO SCH (09:22)
[2022-07-23] MEDS: PANTOPRAZOLE 40 MG TABLET PO SCH (09:22)
[2022-07-23] MEDS: ASCORBIC ACID 250 MG TABLET (FP) PO SCH (09:22)
[2022-07-23] MEDS: SENNOSIDES 8.6MG TABLET (FP) PO SCH ×2 (09:22→21:43)
[2022-07-23] MEDS: THIAMINE HCL 200 MG/2 ML VIAL IVPB SCH (09:23)
[2022-07-23 10:08] LABS: HEMATOCRIT 22.3 % (32.4-45.2); HEMOGLOBIN 7.7 GM/dL (10.7-15.3); MCH 29.1 pg (25.7-33.7); MCHC 34.4 g/dl (32.0-36.0); MEAN CELL VOLUME 84.7 fl (80-96); MEAN PLT VOLUME 9.4 fl (7.5-11.1); PLATELET COUNT 264 10^3/uL (134-434); RBC 2.63 M/mm3 (3.60-5.2); RDW 16.8 % (11.6-15.6); WHITE BLOOD COUNT 6.9 K/mm3 (4.0-10.0)
[2022-07-23] MEDS: IMMUN GLOB G(IGG)/PRO/IGA 0-50 400 ML IVPB SCH ×2 (10:56→11:03)
[2022-07-23 11:03] LABS: POTASSIUM 4.2 mmol/L (3.5-5.1)
[2022-07-23] MEDS: NYSTATIN POWDER 100,000 UNITS/GM - 15 GM TOPICAL POWDER TP SCH (11:04)
[2022-07-23] MEDS: FOLIC ACID 5 MG/1 ML SQ SCH (11:04)
[2022-07-23 11:11] LABS: CALCIUM 9.1 mg/dL (8.5-10.1)
[2022-07-23 11:13] LABS: BLOOD UREA NITROGEN 8.6 mg/dL (7-18); MAGNESIUM 1.9 mg/dL (1.8-2.4)
[2022-07-23 11:15] LABS: CREATININE 1.1 mg/dL (0.55-1.3); PHOSPHOROUS 3.5 mg/dL (2.5-4.9)
[2022-07-23] MEDS: traMADol HCL 50 MG TABLET PO PRN (23:31)
[2022-07-24] MEDS: hydrALAZINE HCL 10 MG TABLET PO SCH ×3 (05:26→21:10)
[2022-07-24] MEDS: HEPARIN NA (PORCINE) 5,000 UNITS/ML 1ML VIAL SQ SCH ×3 (05:26→21:10)
[2022-07-24] MEDS: GABAPENTIN 300 MG CAPSULE PO SCH ×3 (05:26→21:10)
[2022-07-24 08:54] LABS: HEMATOCRIT 21.4 % (32.4-45.2); HEMOGLOBIN 7.2 GM/dL (10.7-15.3); MCH 28.7 pg (25.7-33.7); MCHC 33.6 g/dl (32.0-36.0); MEAN CELL VOLUME 85.4 fl (80-96); PLATELET COUNT 266 10^3/uL (134-434); RDW 17.2 % (11.6-15.6); WHITE BLOOD COUNT 5.6 K/mm3 (4.0-10.0)
[2022-07-24 09:14] LABS: POTASSIUM 3.4 mmol/L (3.5-5.1)
[2022-07-24 09:15] LABS: CALCIUM 8.7 mg/dL (8.5-10.1)
[2022-07-24 09:16] LABS: BLOOD UREA NITROGEN 8.6 mg/dL (7-18); MAGNESIUM 1.6 mg/dL (1.8-2.4)
[2022-07-24 09:18] LABS: CREATININE 1.1 mg/dL (0.55-1.3)
[2022-07-24 09:20] LABS: PHOSPHOROUS 3.4 mg/dL (2.5-4.9)
[2022-07-24] MEDS: FOLIC ACID 5 MG/1 ML SQ SCH (10:37)
[2022-07-24] MEDS: ZINC SULFATE 220 MG CAPSULE (FP) PO SCH (11:02)
[2022-07-24] MEDS: NYSTATIN POWDER 100,000 UNITS/GM - 15 GM TOPICAL POWDER TP SCH (11:02)
[2022-07-24] MEDS: PANTOPRAZOLE 40 MG TABLET PO SCH (11:02)
[2022-07-24] MEDS: SENNOSIDES 8.6MG TABLET (FP) PO SCH ×2 (11:02→21:12)
[2022-07-24] MEDS: MULTIVITAMINS (DAILY MVI) TABLET (FP) PO SCH (11:02)
[2022-07-24] MEDS: THIAMINE HCL 200 MG/2 ML VIAL IVPB SCH (11:03)
[2022-07-24] MEDS: ASCORBIC ACID 250 MG TABLET (FP) PO SCH (11:03)
[2022-07-24] MEDS: PYRIDOXINE HCL 100 MG/1 ML VIAL IM SCH (11:03)
[2022-07-24] MEDS: IMMUN GLOB G(IGG)/PRO/IGA 0-50 400 ML, IMMUN GLOB G(IGG)/PRO/IGA 0-50 100 ML IVPB SCH (11:48)
[2022-07-24] MEDS ORDERED: MAGNESIUM SULF 50% (8.12 MEQ/2 ML-1 GM VIAL) IVPB ONE (12:16)
[2022-07-24] MEDS ORDERED: NAPH,MB-DB/K PH,MBDB POWDER PACKET PO ONE (12:17)
[2022-07-24] MEDS: TRIMETHOBENZAMIDE HCL 200MG/2ML INJ IM ONE (13:56)
[2022-07-24 19:06] LABS: METHYLMALONIC ACID- 118 nmol/L (0-378)
[2022-07-24] MEDS: traMADol HCL 50 MG TABLET PO PRN (22:33)
[2022-07-25] MEDS: HEPARIN NA (PORCINE) 5,000 UNITS/ML 1ML VIAL SQ SCH ×3 (05:14→21:25)
[2022-07-25] MEDS: GABAPENTIN 300 MG CAPSULE PO SCH (05:14)
[2022-07-25] MEDS: hydrALAZINE HCL 10 MG TABLET PO SCH ×3 (05:14→21:24)
[2022-07-25] MEDS: TRIMETHOBENZAMIDE HCL 200MG/2ML INJ IM ONE (06:13)
[2022-07-25] MEDS ORDERED: oxyCODONE HCL 5 MG TABLET PO PRN (08:43)
[2022-07-25] MEDS: ASCORBIC ACID 250 MG TABLET (FP) PO SCH (09:00)
[2022-07-25] MEDS: ZINC SULFATE 220 MG CAPSULE (FP) PO SCH (09:00)
[2022-07-25] MEDS: PANTOPRAZOLE 40 MG TABLET PO SCH (09:00)
[2022-07-25] MEDS: SENNOSIDES 8.6MG TABLET (FP) PO SCH ×3 (09:00→21:24)
[2022-07-25] MEDS: PYRIDOXINE HCL 100 MG/1 ML VIAL IM SCH (09:01)
[2022-07-25] MEDS: FOLIC ACID 5 MG/1 ML SQ SCH (09:01)
[2022-07-25] MEDS: MULTIVITAMINS (DAILY MVI) TABLET (FP) PO SCH (09:01)
[2022-07-25 09:11] LABS: HEMATOCRIT 22.2 % (32.4-45.2); HEMOGLOBIN 7.3 GM/dL (10.7-15.3); MCH 28.2 pg (25.7-33.7); MEAN CELL VOLUME 85.4 fl (80-96); MEAN PLT VOLUME 9.3 fl (7.5-11.1); PLATELET COUNT 280 10^3/uL (134-434); RDW 17.6 % (11.6-15.6)
[2022-07-25] MEDS: THIAMINE HCL 200 MG/2 ML VIAL IVPB SCH (09:25)
[2022-07-25 09:41] LABS: POTASSIUM 3.7 mmol/L (3.5-5.1)
[2022-07-25 09:47] LABS: CALCIUM 9.2 mg/dL (8.5-10.1)
[2022-07-25 09:48] LABS: BLOOD UREA NITROGEN 9.2 mg/dL (7-18); MAGNESIUM 1.6 mg/dL (1.8-2.4)
[2022-07-25 09:51] LABS: CREATININE 1.1 mg/dL (0.55-1.3)
[2022-07-25 09:52] LABS: PHOSPHOROUS 3.9 mg/dL (2.5-4.9)
[2022-07-25] MEDS: IMMUN GLOB G(IGG)/PRO/IGA 0-50 400 ML IVPB SCH (11:30)
[2022-07-25] MEDS: NYSTATIN POWDER 100,000 UNITS/GM - 15 GM TOPICAL POWDER TP SCH (11:34)
[2022-07-25] MEDS ORDERED: MAGNESIUM SULF 50% (8.12 MEQ/2 ML-1 GM VIAL) IVPB ONE (11:56)
[2022-07-25] MEDS: GABAPENTIN 400 MG CAPSULE PO SCH ×2 (13:08→21:32)
[2022-07-25] MEDS: traMADol HCL 50 MG TABLET PO PRN (21:31)
[2022-07-26] MEDS: GABAPENTIN 400 MG CAPSULE PO SCH ×3 (05:34→21:53)
[2022-07-26] MEDS: HEPARIN NA (PORCINE) 5,000 UNITS/ML 1ML VIAL SQ SCH ×3 (05:34→21:54)
[2022-07-26] MEDS: hydrALAZINE HCL 10 MG TABLET PO SCH ×3 (05:34→21:54)
[2022-07-26 08:13] LABS: HEMATOCRIT 20.1 % (32.4-45.2); MCH 29.4 pg (25.7-33.7); MCHC 34.8 g/dl (32.0-36.0); MEAN CELL VOLUME 84.5 fl (80-96); MEAN PLT VOLUME 9.9 fl (7.5-11.1); PLATELET COUNT 278 10^3/uL (134-434); RBC 2.38 M/mm3 (3.60-5.2); RDW 17.4 % (11.6-15.6); WHITE BLOOD COUNT 4.8 K/mm3 (4.0-10.0)
[2022-07-26 08:18] LABS: POTASSIUM 3.4 mmol/L (3.5-5.1)
[2022-07-26 08:21] LABS: BLOOD UREA NITROGEN 8.6 mg/dL (7-18); CALCIUM 8.6 mg/dL (8.5-10.1); MAGNESIUM 1.7 mg/dL (1.8-2.4)
[2022-07-26 08:25] LABS: PHOSPHOROUS 3.7 mg/dL (2.5-4.9)
[2022-07-26] MEDS ORDERED: NAPH,MB-DB/K PH,MBDB POWDER PACKET PO ONE ×2 (10:05→12:45)
[2022-07-26] MEDS: MULTIVITAMINS (DAILY MVI) TABLET (FP) PO SCH (10:10)
[2022-07-26] MEDS: ASCORBIC ACID 250 MG TABLET (FP) PO SCH (10:10)
[2022-07-26] MEDS: SENNOSIDES 8.6MG TABLET (FP) PO SCH ×2 (10:10→21:53)
[2022-07-26] MEDS: PANTOPRAZOLE 40 MG TABLET PO SCH (10:10)
[2022-07-26] MEDS: ZINC SULFATE 220 MG CAPSULE (FP) PO SCH (10:10)
[2022-07-26] MEDS: PYRIDOXINE HCL 100 MG/1 ML VIAL IM SCH (10:11)
[2022-07-26] MEDS: FOLIC ACID 5 MG/1 ML SQ SCH (10:13)
[2022-07-26] MEDS: NYSTATIN POWDER 100,000 UNITS/GM - 15 GM TOPICAL POWDER TP SCH (10:13)
[2022-07-26] MEDS: MAGNESIUM SULF 50% (8.12 MEQ/2 ML-1 GM VIAL) IVPB ONE ×2 (11:18→11:19)
[2022-07-26] MEDS ORDERED: TAMSULOSIN HCL 0.4 MG CAP PO ONE (12:23)
[2022-07-27] MEDS: HEPARIN NA (PORCINE) 5,000 UNITS/ML 1ML VIAL SQ SCH ×3 (06:23→21:47)
[2022-07-27] MEDS: GABAPENTIN 400 MG CAPSULE PO SCH ×3 (06:24→21:49)
[2022-07-27] MEDS: hydrALAZINE HCL 10 MG TABLET PO SCH ×3 (06:24→21:48)
[2022-07-27] MEDS ORDERED: TAMSULOSIN HCL 0.4 MG CAP PO ONE (08:30)
[2022-07-27] MEDS ORDERED: TAMSULOSIN HCL 0.4 MG CAP PO SCH (08:30)
[2022-07-27] MEDS ORDERED: THIAMINE HCL 100 MG TABLET (FP) PO SCH (10:00)
[2022-07-27] MEDS: ZINC SULFATE 220 MG CAPSULE (FP) PO SCH (10:15)
[2022-07-27] MEDS: PANTOPRAZOLE 40 MG TABLET PO SCH (10:15)
[2022-07-27] MEDS: MULTIVITAMINS (DAILY MVI) TABLET (FP) PO SCH (10:16)
[2022-07-27] MEDS: SENNOSIDES 8.6MG TABLET (FP) PO SCH ×2 (10:16→21:47)
[2022-07-27] MEDS: PYRIDOXINE HCL 100 MG/1 ML VIAL IM SCH (10:16)
[2022-07-27] MEDS: ASCORBIC ACID 250 MG TABLET (FP) PO SCH (10:18)
[2022-07-27] MEDS: NYSTATIN POWDER 100,000 UNITS/GM - 15 GM TOPICAL POWDER TP SCH (10:19)
[2022-07-27] MEDS ORDERED: ACETAMINOPHEN 325 MG TABLET (FP) PO ONE (20:50)
[2022-07-28] MEDS: HEPARIN NA (PORCINE) 5,000 UNITS/ML 1ML VIAL SQ SCH ×3 (05:58→21:29)
[2022-07-28] MEDS: hydrALAZINE HCL 10 MG TABLET PO SCH ×3 (05:58→21:29)
[2022-07-28] MEDS: GABAPENTIN 400 MG CAPSULE PO SCH (05:58)
[2022-07-28] MEDS: SENNOSIDES 8.6MG TABLET (FP) PO SCH ×2 (09:44→21:29)
[2022-07-28] MEDS: POTASSIUM CHLORIDE TABS 20 MEQ TABLET.ER (FP) PO SCH (09:44)
[2022-07-28] MEDS: ASCORBIC ACID 250 MG TABLET (FP) PO SCH (09:45)
[2022-07-28] MEDS: ZINC SULFATE 220 MG CAPSULE (FP) PO SCH (09:45)
[2022-07-28] MEDS: MULTIVITAMINS (DAILY MVI) TABLET (FP) PO SCH (09:45)
[2022-07-28] MEDS: PANTOPRAZOLE 40 MG TABLET PO SCH (09:45)
[2022-07-28] MEDS: PYRIDOXINE HCL 100 MG/1 ML VIAL IM SCH (09:46)
[2022-07-28] MEDS ORDERED: MAGNESIUM OXIDE 400 MG TABLET (FP) PO SCH (10:00)
[2022-07-28 10:39] LABS: HEMATOCRIT 21.9 % (32.4-45.2); HEMOGLOBIN 7.4 GM/dL (10.7-15.3); MCH 28.6 pg (25.7-33.7); MCHC 33.8 g/dl (32.0-36.0); MEAN CELL VOLUME 84.7 fl (80-96); MEAN PLT VOLUME 9.2 fl (7.5-11.1); PLATELET COUNT 346 10^3/uL (134-434); RBC 2.58 M/mm3 (3.60-5.2); RDW 17.4 % (11.6-15.6); WHITE BLOOD COUNT 4.9 K/mm3 (4.0-10.0)
[2022-07-28 10:55] LABS: POTASSIUM 3.5 mmol/L (3.5-5.1)
[2022-07-28 11:00] LABS: BLOOD UREA NITROGEN 5.6 mg/dL (7-18); CALCIUM 8.6 mg/dL (8.5-10.1); MAGNESIUM 1.4 mg/dL (1.8-2.4)
[2022-07-28 11:03] LABS: PHOSPHOROUS 3.3 mg/dL (2.5-4.9)
[2022-07-28 11:04] LABS: CREATININE 1.1 mg/dL (0.55-1.3)
[2022-07-28] MEDS ORDERED: MAGNESIUM SULF 50% (8.12 MEQ/2 ML-1 GM VIAL) IVPB ONE (11:30)
[2022-07-28] MEDS ORDERED: GABAPENTIN 400 MG CAPSULE PO SCH (11:31)
[2022-07-28] MEDS: NYSTATIN POWDER 100,000 UNITS/GM - 15 GM TOPICAL POWDER TP SCH (12:28)
[2022-07-28] MEDS: GABAPENTIN 400 MG, GABAPENTIN 100 MG PO SCH ×2 (12:30→21:29)
[2022-07-28] MEDS ORDERED: TAMSULOSIN HCL 0.4 MG CAP PO ONE (18:39)
[2022-07-28 22:42] LABS: EPI CELLS 15 /uL (0-25.1); HYALINE CASTS 0 /uL (0-3.1); PH,URINE 5.5 (5.0-8.0); URINE APPEARANCE CLEAR; URINE BACTERIA 5434 /uL (0-1359); URINE BILIRUBIN NEGATIVE (NEGATIVE); URINE COLOR YELLOW; URINE GLUCOSE (UA) NEGATIVE (NEGATIVE); URINE KETONE NEGATIVE (NEGATIVE); URINE LEUK ESTERASE 1+ (NEGATIVE); URINE NITRITE NEGATIVE (NEGATIVE); URINE PROTEIN NEGATIVE (NEGATIVE); URINE RBC 9 /uL (0-23.9); URINE UROBILINOGEN 0.2 mg/dL (0.2-1.0); URINE WBC 91 /uL (0-25.8)
[2022-07-29] MEDS: hydrALAZINE HCL 10 MG TABLET PO SCH ×3 (06:12→21:02)
[2022-07-29] MEDS: HEPARIN NA (PORCINE) 5,000 UNITS/ML 1ML VIAL SQ SCH ×3 (06:12→21:02)
[2022-07-29] MEDS: GABAPENTIN 400 MG, GABAPENTIN 100 MG PO SCH ×3 (06:12→21:02)
[2022-07-29 08:50] VITALS: RESP 18
[2022-07-29] MEDS: MULTIVITAMINS (DAILY MVI) TABLET (FP) PO SCH (09:11)
[2022-07-29] MEDS: TAMSULOSIN HCL 0.4 MG CAP PO SCH (09:11)
[2022-07-29] MEDS: ZINC SULFATE 220 MG CAPSULE (FP) PO SCH (09:11)
[2022-07-29] MEDS: ASCORBIC ACID 250 MG TABLET (FP) PO SCH (09:11)
[2022-07-29] MEDS: POTASSIUM CHLORIDE TABS 20 MEQ TABLET.ER (FP) PO SCH (09:11)
[2022-07-29] MEDS: SENNOSIDES 8.6MG TABLET (FP) PO SCH ×2 (09:12→21:02)
[2022-07-29] MEDS: PANTOPRAZOLE 40 MG TABLET PO SCH (09:12)
[2022-07-29] MEDS: PYRIDOXINE HCL 100 MG/1 ML VIAL IM SCH (09:12)
[2022-07-29] MEDS: NYSTATIN POWDER 100,000 UNITS/GM - 15 GM TOPICAL POWDER TP SCH (09:36)
[2022-07-30] MEDS: hydrALAZINE HCL 10 MG TABLET PO SCH ×2 (05:04→13:31)
[2022-07-30] MEDS: GABAPENTIN 400 MG, GABAPENTIN 100 MG PO SCH ×2 (05:04→13:31)
[2022-07-30] MEDS: HEPARIN NA (PORCINE) 5,000 UNITS/ML 1ML VIAL SQ SCH ×2 (05:04→13:29)
[2022-07-30] MEDS: TAMSULOSIN HCL 0.4 MG CAP PO SCH (08:01)
[2022-07-30] MEDS: ASCORBIC ACID 250 MG TABLET (FP) PO SCH (09:23)
[2022-07-30] MEDS: PYRIDOXINE HCL 100 MG/1 ML VIAL IM SCH (09:23)
[2022-07-30] MEDS: SENNOSIDES 8.6MG TABLET (FP) PO SCH (09:23)
[2022-07-30] MEDS: MULTIVITAMINS (DAILY MVI) TABLET (FP) PO SCH (09:23)
[2022-07-30] MEDS: ZINC SULFATE 220 MG CAPSULE (FP) PO SCH (09:23)
[2022-07-30] MEDS: PANTOPRAZOLE 40 MG TABLET PO SCH (09:23)
[2022-07-30] MEDS ORDERED: CEFTRIAXONE 1 GM in DEXTROSE 5%-WATER - 50 ML IVPB SCH (10:00)
[2022-07-30] MEDS: NYSTATIN POWDER 100,000 UNITS/GM - 15 GM TOPICAL POWDER TP SCH (10:00)
[2022-07-30 11:09] LABS: POTASSIUM 4.5 mmol/L (3.5-5.1)
[2022-07-30 11:10] LABS: CALCIUM 8.7 mg/dL (8.5-10.1)
[2022-07-30 11:11] LABS: MAGNESIUM 1.7 mg/dL (1.8-2.4)
[2022-07-30 11:14] LABS: CREATININE 1.1 mg/dL (0.55-1.3)
[2022-07-30] MEDS ORDERED: MAGNESIUM 2GM/50ML STERILE WATER IVPB IVPB ONE (13:30)
[2022-07-30 18:43] VITALS: BP 119/75; PULSE 106; TEMP 98.2
[2022-07-31] MEDS ORDERED: CEPHALEXIN 250 MG/5 ML ORAL SUSPENSION PO SCH (10:00)
== END 2022-07-30 20:15 | DRG 49 ==
LOC: JER 10:34 → JERBED 12:30 → JICU 18:15 → J6S 07-09 17:50
PROVIDERS: ADMIT Internal Medicine; ATTEND Internal Medicine
PROC: 009U3ZX Drainage of Spinal Canal, Percutaneous Approach, Diagnostic (ICD-10-PCS; principal; 2022-07-17)
PROC: 30233S1 Transfusion of Nonautologous Globulin into Peripheral Vein, Percutaneous Approach (ICD-10-PCS; 2022-07-21)
DX: G61.0 Guillain-Barre syndrome (principal); N17.9 Acute kidney failure, unspecified; E86.0 Dehydration; E87.20 Acidosis, unspecified; E87.1 Hypo-osmolality and hyponatremia; N39.0 Urinary tract infection, site not specified; I95.89 Other hypotension; E86.1 Hypovolemia; E83.51 Hypocalcemia; R20.2 Paresthesia of skin; R21 Rash and other nonspecific skin eruption; E83.42 Hypomagnesemia; D63.8 Anemia in other chronic diseases classified elsewhere; E66.01 Morbid (severe) obesity due to excess calories; Z79.84 Long term (current) use of oral hypoglycemic drugs; Z68.42 Body mass index [BMI] 45.0-49.9, adult; E53.8 Deficiency of other specified B group vitamins; R33.8 Other retention of urine; E11.22 Type 2 diabetes mellitus with diabetic chronic kidney disease; I12.9 Hypertensive chronic kidney disease with stage 1 through stage 4 chronic kidney disease, or unspecified chronic kidney disease; G62.89 Other specified polyneuropathies; N18.9 Chronic kidney disease, unspecified; G56.00 Carpal tunnel syndrome, unspecified upper limb; N31.9 Neuromuscular dysfunction of bladder, unspecified
CPT/HCPCS: 0241U-QW; 36415; 62272; 70551-TC; 71045-TC-FY; 71250-TC; 72156-TC; 72157-TC; 72158-TC; 73502-TC-RT-FY; 73552-TC-RT-FY; 73562-TC-RT-FY; 74018-TC-FY; 74176-TC; 76775-TC; 80048; 80053; 81003; 82136; 82272; 82525; 82550; 82553; 82570; 82595; 82607; 82728; 82746; 82784; 82787; 82803; 82945; 82962; 83036; 83090; 83516; 83520; 83540; 83550; 83605; 83615; 83655; 83735; 83916; 83918; 83921; 83930; 84100; 84155; 84156; 84157; 84165; 84207; 84255; 84300; 84425; 84443; 84484; 85025; 85027; 85045; 85610; 85651; 85730; 86038; 86140; 86225; 86235; 86256; 86431; 86618; 86780; 87040; 87070; 87076; 87086; 87186; 87205; 93005; 93010; 97116-GP; 97162-GP; 99285-25; J1459; J1644